=== PATIENT | female | born 1960 ===

== ENCOUNTER 2016-09-15 08:03 | Day surgery (SDC) | payer MEDICARE ==
[2016-09-15 08:28] VITALS: BMI 26.2
[2016-09-15] MEDS ORDERED: Propofol 10 mg/ml Inj (20 ML) ONE (09:37)
[2016-09-15] MEDS ORDERED: Lidocaine Hydrochloride 5 ML INJ ONE (09:37)
[2016-09-15 10:33] VITALS: O2SAT 100
[2016-09-15 11:21] VITALS: BP 123/75; PULSE 72; RESP 14; TEMP 97.8
== END 2016-09-15 11:20 | disposition home or self-care (01) ==
LOC: C.ENDO 08:03
PROVIDERS: ATTEND Internal Medicine
DX: D12.3 Benign neoplasm of transverse colon (principal); K59.09 Other constipation; K25.9 Gastric ulcer, unspecified as acute or chronic, without hemorrhage or perforation; K29.50 Unspecified chronic gastritis without bleeding; K29.80 Duodenitis without bleeding; K59.00 Constipation, unspecified; B96.81 Helicobacter pylori [H. pylori] as the cause of diseases classified elsewhere; K64.8 Other hemorrhoids
CPT/HCPCS: 43239; 45385; 88305; 88313; 88342; J2704; J3010

== ENCOUNTER 2017-08-14 09:05 | Day surgery (SDC) | payer MEDICARE ==
[2017-08-14] MEDS ORDERED: Propofol 10 mg/ml Inj (20 ML) ONE (09:32)
[2017-08-14 09:36] VITALS: BMI 26.9
[2017-08-14 10:07] VITALS: RESP 16; TEMP 98.2; O2SAT 100
[2017-08-14 11:13] VITALS: BP 168/89; PULSE 77
== END 2017-08-14 11:10 | disposition home or self-care (01) ==
LOC: C.ENDO 09:05
PROVIDERS: ATTEND Internal Medicine
DX: K29.70 Gastritis, unspecified, without bleeding (principal); K25.9 Gastric ulcer, unspecified as acute or chronic, without hemorrhage or perforation
CPT/HCPCS: 43239; 88305; 88342; J2001; J2704; J3010